=== PATIENT | female | born 1965 | race Caucasian/White ===

== ENCOUNTER 2017-10-15 15:06 | Observation (INO) | payer OTHER ==
--- NOTE | ~2017-10-15 | 2DMMODE ---
[facility] [place] [address] 2 D/M-MODE ECHOCARDIOGRAM Name: WEI QUINTANA Room #: REG [facility]#: [id number] Admission: 10/15/17 Attend Phys: Michael Aquino, Discharge: Date of : 67 Date of Service: 10/15/17 1611 Report #: [id number] THIS REPORT FOR: //name// APPROVED REPORT Study performed: 10/15/2017 15:12:44 EXAM: Comprehensive 2D, Doppler, and color-flow Echocardiogram Patient Location: [facility] area Room #: 3 Status: stat BSA: 1.80 BP: 115/77 mmHg Other Information Study Quality: Good Indications Abnormal ECG Chest Pain 2D Dimensions RVDd: 36.40 mm LVEF(%): 51.84 (>50%) IVSd: 8.22 (7-11mm) LVOT Diam: 21.44 (18-24mm) LVDd: 44.12 mm PWd: 8.18 (7-11mm) Ascending Ao: 28.35 (22-36mm) LVDs: 32.49 (25-40mm) Aortic Root: 29.54 mm IVC: 12.00 mm Greene's LVEF: 51.84 % Volumes Left Atrial Volume (Systole) Single Plane 4CH: 34.47 mL Single Plane 2CH: 33.57 mL LA ESV Index: 20.00 mL/m2 Aortic Valve AoV Peak Tavo.: 1.02 m/s AO Peak Gr.: 4.14 mmHg LVOT Max P.32 mmHg LVOT Max V: 0.91 m/s GABRIEL Vmax: 3.23 cm2 Mitral Valve E/A Ratio: 1.3 MV Decel. Time: 185.88 ms [facility] [place] [address] [place] [address] 2 D/M-MODE ECHOCARDIOGRAM Name: WEI QUINTANA Room #: [facility]#: [id number] Admission: 10/15/17 Attend Phys: Michael Aquino, Discharge: Date of : 67 Date of Service: 10/15/17 1611 Report #: [id number] MV E Max Tavo.: 0.80 m/s MV A Tavo.: 0.64 m/s MV PHT: 53.91 ms IVRT: 101.50 ms Pulmonary Valve PV Peak Tavo.: 0.67 m/s PV Peak Gr.: 1.80 mmHg Pulmonary Vein P Vein S: 0.57 m/s P Vein A: 0.25 m/s P Vein D: 0.31 m/s P Vein A Dur.: 124.6 msec P Vein S/D Ratio: 1.84 Left Ventricle The left ventricle is normal size. There is normal left ventricular wall thickness. The left ventricular systolic function is mildly depressed. Inferior and inferoseptal hypokinesis LVEF is 45%. The left ventricular diastolic function is normal. Right Ventricle The right ventricle is normal size. The right ventricular systolic function is normal. Atria The left atrium size is normal. The right atrium size is normal. Aortic Valve The aortic valve is normal in structure. No aortic regurgitation is present. There is no aortic valvular stenosis. Mitral Valve The mitral valve is normal in structure. Mild mitral regurgitation. No evidence of mitral valve stenosis. Tricuspid Valve The tricuspid valve is normal in structure. There is no tricuspid valve regurgitation noted. Pulmonic Valve The pulmonary valve is normal in structure. There is no pulmonic valvular regurgitation. Great Vessels The aortic root is normal in size. IVC is normal in size and collapses >50% with inspiration. [address] [address] 2 D/M-MODE ECHOCARDIOGRAM Name: WEI QUINTANA Room #: REG [facility]#: [id number] Admission: 10/15/17 Attend Phys: Michael Aquino, Discharge: Date of : 67 Date of Service: 10/15/17 1611 Report #: [id number] Pericardium There is no pericardial effusion. <Conclusion> The left ventricular systolic function is mildly depressed. Inferior and inferoseptal hypokinesis LVEF is 45%. Normal diastolic function The aortic valve is normal in structure. No aortic regurgitation or stenosis The mitral valve is normal in structure. Mild mitral regurgitation. Pulmonary artery pressure could not be reliably ascertained There is no pericardial effusion. <ELECTRONICALLY SIGNED> By: Michael Aquino MD, FACC 10/15/171610 10 10 Michael Aquino MD, FACC /INF
--- NOTE | ~2017-10-15 | D ---
[facility] [place] [address] DISCHARGE SUMMARY Name: WEI QUINTANA Room #: 212-P [facility] Donna Cosby#: [id number] Admission: 10/15/17 Attend Phys: Michael Aquino MD, Discharge: 10/15/17 Date of : 67 Report #: [id number] THIS REPORT FOR: //name// CC: Michael Anguiano DO DATE OF SERVICE: 10/15/2017 DISCHARGE DIAGNOSES: 1. Chest pain. 2. Abnormal EKG, possible recent myocardial ischemic event, possible coronary vasospasm. 3. Dyslipidemia. 4. Normal coronary vasculature. Suggested inferior wall hypokinesis by echocardiography. HISTORY OF PRESENT ILLNESS: For the complete details of history of present illness, see dictated history and physical. The patient is a 52-year-old woman who 3 weeks ago traveled to [place] on vacation. While in [place], she developed midsternal chest tightness radiating down both arms. This was associated with diaphoresis and near syncope. Her at the time remarked that she looked "bad." She received a shot of Toradol and was told of possibly having an inner ear infection. No other specific evaluation was undertaken. Upon returning home, an electrocardiogram demonstrated fairly prominent inferior and anterolateral T-wave inversion. She described chest discomfort that had persisted along with the development of nonsustained palpitations. Based on the nature of her symptoms, she was admitted for further evaluation. The patient underwent coronary angiography. This demonstrated normal coronary vasculature and a left coronary dominant circulation. Initial troponin was normal. Possibility of coronary vasospasm for her event 3 weeks ago, could not be excluded and could potentially have explained to her electrocardiographic abnormality and presenting symptom. She was treated with aspirin and amlodipine 5 mg daily in addition to her levothyroxine. Medicines were reconciled. Arrangements were made for an outpatient echocardiogram with [facility] to reassess her inferior wall motion abnormality seen by echocardiography. Endocardium in this region was difficult to visualize. A 2-week event recorder will be arranged. DISCHARGE DIET: Heart healthy. DISCHARGE ACTIVITY: As instructed post-catheterization. DISCHARGE FOLLOWUP: With myself after the above noted testing. Followup with Dr. Peter Anguiano. [facility] [address] [place] [address] DISCHARGE SUMMARY Name: WEI QUINTANA [facility] #: [id number] Admission: 10/15/17 Attend Phys: Michael Aquino MD, Discharge: 10/15/17 Date of : 67 Report #: [id number] DISCHARGE CONDITION: Stable. <ELECTRONICALLY SIGNED> By: Michael Aquino MD, [facility] 10/18/1706 1736 37 Michael Aquino MD, [facility] /nt
--- NOTE | ~2017-10-15 | CATHLAB ---
[facility] [address] [place] [address] INVASIVE PROCEDURE REPORT Name: MARIANOWEI Devin Room #: 212-P [facility]#: [id number] Admission: 10/15/17 Attend Phys: Michael Aquino, Discharge: Date of : 67 Date of Service: 10/15/17 175 Report #: [id number] THIS REPORT FOR: //name// APPROVED REPORT Patient Details Patient Status: Out-Patient Room #: The patient is a 52 year-old female Event Personnel Michael Aquino Linecasting Machine Keyboard Operator, Sharif Phan RN, Kayleigh Antonio RN RN, Miladys Pedroza Greenwood, Christine RTR Monitor, Dotty Henley RTR, COMMUNITY SERVICE DIRECTOR Monitor, Michael Aquino Linecasting Machine Keyboard Operator, Sharif Phan RN, Kayleigh Antonio RN earth mover Performed Art Access - R femoral artery* 34770 Initial Mod Sed Same Phys/QHP Gr5y [id number] Left Heart Cath w/or w/o Coronaries [id number] [facility] Procedure Narrative The Right Groin^ was infiltrated with 1% Lidocaine subcutaneous anesthesia. A PINNACLE 6FR Sheath #[id number] sheath was inserted into the RFA^. Coronary angiography was performed using coronary diagnostic catheters. The right coronary system was accessed and visualized with a JR4 catheter. The left coronary system was accessed and visualized with a JL4 catheter. The left ventricle was accessed and visualized with a Pigtail catheter. Left ventricular/Aortic Valve gradient assessed via catheter pullback. Left ventriculogram was performed in 30 degree projection. Closure device was deployed with a 6 Fr Mynx. The patient tolerated the procedure well and there were no complications associated with the procedure. There was no hematoma. Intraoperative Conscious Sedation Sedation start time: 16:12 Case end Time: 16:31 Fentanyl 25 mcg Versed 1.5 mg Fluoro Time: 1.50 minutes Dose: DAP 2741.69 cGycm2 332 mGy Contrast Type and Amount: Visipaque 80 ml Coronary Angiography The patient's coronary anatomy is left dominant. [address] [address] INVASIVE PROCEDURE REPORT Name: MARIANOWEI Devin Room #: 212-P [facility]#: [id number] Admission: 10/15/17 Attend Phys: Micheal Aquino, Discharge: Date of : 67 Date of Service: 10/15/17 1752 Report #: [id number] Diagnostic Cath Left Main Normal LAD Normal, extending to apex Diagonal 1 Single, moderate size first diagonal, angiographically normal Circumflex Dominant, normal OM1 Large OM1, angiographically normal OM2 small, distally arising OM2, angiographically normal L PDA normal, moderate size Right Coronary Small, non-dominant. Angiographically normal Left Ventriculography The left ventricle is normal in size with normal contractility. The left ventricular ejection fraction is estimated to be 50-55%. Left ventricular wall motion abnormalities are cannot rule out inferior wall motion abnormality. There is no mitral insufficiency. Hemodynamics The aortic pressure is 147/71 mmHg with a mean of 100 mmHg. The left ventricular pressure is 156/12 mmHg with a mean of mmHg. The left ventricular end diastolic pressure is 25 mmHg. Conclusion 1. Normal global systolic function. Cannot rule out mild inferior hypokinesis 2. Normal coronary angiography. Left coronary dominant circulation <ELECTRONICALLY SIGNED> By: Michael Aquino MD, FACC 10/15/171751 51 51 Michael Aquino MD, FACC /INF
[2017-10-15 15:47] LABS: HEMATOCRIT 42.8 % (37.0-47.0); HEMOGLOBIN 14.3 gm/dL (12.0-15.0); MCH 28.7 pg (26.0-34.0); MCHC 33.4 g/dL (28.0-37.0); RBC 4.98 mil/uL (4.20-5.00); RDW 13.6 % (10.5-14.5); WBC 7.8 thou/uL (4.0-11.0)
[2017-10-15] MEDS ORDERED: LEVO-T100 MCG PO (15:53)
[2017-10-15 16:01] LABS: ANION GAP 7 mmol/L (7-16); BUN 11 mg/dL (7-18); CALCIUM 9.1 mg/dL (8.5-10.1); CHLORIDE 102 mmol/L (98-107); CO2 31 mmol/L (21-32); CREATININE 0.8 mg/dL (0.6-1.0); GLUCOSE 87 mg/dL (74-106); POTASSIUM 3.8 mmol/L (3.5-5.1); SODIUM 140 mmol/L (136-145)
[2017-10-15 16:09] LABS: TROPONIN-I < 0.04 ng/mL (<0.06)
[2017-10-15 17:30] VITALS: BP 130/82
[2017-10-15] MEDS ORDERED: ASPIR 8181 MG PO (17:32)
[2017-10-15] MEDS ORDERED: NORVASC5 MG PO (17:32)
[2017-10-15 17:45] VITALS: BP 114/73
[2017-10-15 21:08] VITALS: BP 114/73
== END 2017-10-15 20:15 | disposition home or self-care (01) ==
LOC: CV 15:06 → 2N 17:14 → CV 17:17 → 2N 20:15
PROVIDERS: Internal Medicine
DX: I20.0 Unstable angina (principal); E78.5 Hyperlipidemia, unspecified; R94.31 Abnormal electrocardiogram [ECG] [EKG]; E03.9 Hypothyroidism, unspecified; G43.109 Migraine with aura, not intractable, without status migrainosus

== ENCOUNTER → 2021-06-17 | Outpatient (CLI) | payer OTHER ==
[~2021-06-17] MED LIST: ASPIR 8181 MG PO; LEVO-T100 MCG PO; NORVASC5 MG PO
== END ==
LOC: SJCVCIMAG 08:26
PROVIDERS: ATTEND Internal Medicine
DX: I25.3 Aneurysm of heart (principal); R00.2 Palpitations; G47.33 Obstructive sleep apnea (adult) (pediatric); I49.3 Ventricular premature depolarization; Q21.1 Atrial septal defect